=== PATIENT | female | born 1990 | race American Indian/Alaskan Native ===

== ENCOUNTER 2021-06-23 16:40 | Emergency (ER) | payer OTHER ==
--- NOTE | 2021-06-23 23:55 | Emergency Department Report ---
- General Chief Complaint: Adult Asthma Stated Complaint: headache Time Seen by Provider: 06/23/21 22:41 Source: patient Mode of arrival: Ambulatory Limitations: No Limitations - History of Present Illness Initial Comments: 30-year-old F [place] female with asthma history of asthma reports penniless presents emerged department complaining of having a couple day history of shortness of breath associated with cough and congestion, sore throat. She became concerned and she received notice from multiple persons that she was testing positive with the coronavirus so she decided come to the presents emergency department because of [place] hematemesis hematochezia, no area, no nausea vomiting Severity: mild Quality: dull Consistency: constant Associated Symptoms: denies other symptoms - Related Data Previous Rx's Medication Instructions Recorded Last Taken Type Acetaminophen [Non-Aspirin Extra 500 mg PO Q6HR PRN #30 tablet 07/20/19 Unknown Rx Strength] Albuterol Sulfate [Proair 90 mcg IH Q4HR PRN #2 [email or web address] 07/20/19 Unknown Rx Respiclick] Benzonatate [Tessalon Perles] 100 mg PO Q8HR PRN #30 capsule 07/20/19 Unknown Rx Ibuprofen [Motrin] 600 mg PO Q8H PRN #30 tablet 07/20/19 Unknown Rx Allergies Allergy/AdvReac Type Severity Reaction Status Date / Time No Known Allergies Allergy Verified 06/23/21 17:43 ED Review of Systems ROS: Stated complaint: headache Other details as noted in HPI Comment: All other systems reviewed and negative ED Past Medical Hx - Past Medical History Hx Asthma: Yes - Surgical History Additional Surgical History: Nasal polyps - Social History Smoking Status: Never Smoker Substance Use Type: None - Medications Home Medications: Home Medications Medication Instructions Recorded Confirmed Last Taken Type Acetaminophen [Non-Aspirin Extra 500 mg PO Q6HR PRN #30 tablet 07/20/19 Unknown Rx Strength] Albuterol Sulfate [Proair 90 mcg IH Q4HR PRN #2 [email or web address] 07/20/19 Unknown Rx Respiclick] Benzonatate [Tessalon Perles] 100 mg PO Q8HR PRN #30 capsule 07/20/19 Unknown Rx Ibuprofen [Motrin] 600 mg PO Q8H PRN #30 tablet 07/20/19 Unknown Rx ED Physical Exam - General Limitations: No Limitations General appearance: alert, in no apparent distress - Head Head exam: Present: atraumatic, normocephalic - Eye Eye exam: Present: normal appearance, PERRL, EOMI Pupils: Present: normal accommodation - ENT ENT exam: Present: normal exam, mucous membranes moist - Neck Neck exam: Present: normal inspection, full ROM - Respiratory Respiratory exam: Present: normal lung sounds bilaterally. Absent: respiratory distress - Cardiovascular Cardiovascular Exam: Present: regular rate, normal rhythm. Absent: bradycardia, tachycardia, systolic murmur, diastolic murmur, rubs, gallop - GI/Abdominal GI/Abdominal exam: Present: soft, normal bowel sounds - Extremities Exam Extremities exam: Present: normal inspection - Back Exam Back exam: Present: normal inspection - Neurological Exam Neurological exam: Present: alert, oriented X3 - Psychiatric Psychiatric exam: Present: normal affect, normal mood - Skin Skin exam: Present: warm, dry, intact, normal color. Absent: rash ED Course Vital Signs 06/23/21 17:41 Pulse Rate 90 Respiratory 18 Rate Blood Pressure 173/83 [Left] O2 Sat by Pulse 100 Oximetry Critical care attestation.: If time is entered above; I have spent that time in minutes in the direct care of this critically ill patient, excluding procedure time. ED Disposition Clinical Impression: Viral syndrome, Close exposure to COVID-19 virus Disposition: HOME / SELF CARE / HOMELESS Is pt being admited?: No Does the pt Need Aspirin: No Condition: Stable Instructions: Viral Respiratory Infection, [id number], Viral Illness, Adult, Hand Washing, COVID-19, COVID-19: How to Protect Yourself and Others - CDC Additional Instructions: Please Hydrocil will take vitamin C and zinc in Tylenol as needed for symptoms you may follow-up at a local testing site for Covid testing as it is not done at the emergency department locations have been listed for you to assist with Covid testing Referrals: ROSALIND MENDIOLA, DO [Primary Care Provider] - 3-5 Days [facility] [Other] - [facility] (COVID TESTING)
[2021-06-24 01:07] VITALS: BP 122/80
== END 2021-06-24 01:05 | disposition home or self-care (01) ==
LOC: ED 16:40
DX: B34.9 Viral infection, unspecified (principal); Z20.822 Contact with and (suspected) exposure to COVID-19; J45.909 Unspecified asthma, uncomplicated; Z98.890 Other specified postprocedural states
CPT/HCPCS: 99282